=== PATIENT | female | born 1970 | race African-American/Black ===

== ENCOUNTER 2018-08-20 16:00 | Emergency (ER) | payer SELFPAY ==
[~2018-08-20] VITALS: Ht 175.3 cm; Wt 146.0 kg
[~2018-08-20 16:00] MED LIST: AZIT250T12 PO; COPAJ SQ; IBUP-2028 PO
[2018-08-20] MEDS ORDERED: KETOROLAC 60MG/2ML VIAL IM STA (17:35)
[2018-08-20 17:46] VITALS: BP 164/107
== END 2018-08-20 18:33 | disposition home or self-care (01) ==
LOC: ER 16:00
DX: M54.89 Other dorsalgia (principal); M60.89 Other myositis, multiple sites; V49.49XA Driver injured in collision with other motor vehicles in traffic accident, initial encounter; Y93.89 Activity, other specified; Y92.410 Unspecified street and highway as the place of occurrence of the external cause
CPT/HCPCS: 81025; 96372; 99283; J1885